=== PATIENT | female | born 1975 | race Caucasian/White ===

== ENCOUNTER 2018-02-01 14:24 | Inpatient (IN) | payer MEDICAID ==
[~2018-02-01] VITALS: Ht 167.6 cm; Wt 75.0 kg
--- NOTE | ~2018-02-01 | MORECARE ---
CASE MANAGEMENT DISCHARGE SUMMARY PATIENT: TIESHA CHAUDHARY UNIT: [id number] ADM DATE: 02/01/18 AGE: 42 : [birth year] SEX: F ROOM/BED: D.E10 AUTHOR: DEVYN COTTON PHYSICIAN: REFERRING PHYSICIAN: LIZA JEFFERSON MD DATE OF SERVICE: 02/01/18 Discharge Plan Patient Name: TIESHA CHAUDHARY Facility: [facility]:[place] : 1975 Planned Disposition: Home Anticipated Discharge Date: 02/03/18 Discharge Date: Expected LOS: 2 Initial Reviewer: [email or web address] Initial Review Date: 02/01/2018 Generated: 02/01/18 7:42 pm Patient Name: TIESHA CHAUDHARY Page [id number] at 1842 All edits/amendments must be made on the electronic document DICTATION DATE: 02/01/181841 NURSE EMERGENCY ROOM: MARNI 02/01/181841 RPT#: [id number] DC DATE: STATUS: ADM IN [facility] [address] [place] [address] END OF REPORT
--- NOTE | ~2018-02-01 | MORECARE ---
CASE MANAGEMENT DISCHARGE SUMMARY PATIENT: TIESHA CHAUDHARY UNIT: [id number] ADM DATE: 02/01/18 AGE: 42 : [birth year] SEX: F ROOM/BED: D.1204 AUTHOR: DEVYN COTTON PHYSICIAN: REFERRING PHYSICIAN: LIZA JEFFERSON MD DATE OF SERVICE: 02/03/18 Discharge Plan Patient Name: TIESHA CHAUDHARY Facility: [facility]:[place] : 1975 Planned Disposition: Home Anticipated Discharge Date: 02/03/18 Discharge Date: 02/02/2018 Expected LOS: 2 Initial Reviewer: [email or web address] Initial Review Date: 02/01/2018 Generated: 02/03/18 11:10 am DCP- Discharge Planning Updated by [email or web address]: Dominique Servin on 02/01/18 5:[address] Patient Name: TIESHA CHAUDHARY Admission Status: ER Accout number: [id number] Admission Date: 02-01-2018 : 1975 Admission Diagnosis: Attending: LIZA JEFFERSON Current LOS: 1 Anticipated DC Date: 02-03-2018 Planned Disposition: Home Primary Insurance: MEDICAID [place] Discharge Planning Comments: CM met with patient to complete initial dc planning assessment. CM educated patient on the CM role and verbal consent given by patient to complete assessment. Patient reports she is currently staying at [facility] for drug rehab. She reports she has been there for one month but has been clean for two months. At discharge patient plans to return to [facility] and feels this is a safe discharge. Patient denied known discharge needs at this time. She stated that [facility] will transport her back to their facility at time of discharge. CM will continue to follow and will assist as needed with dc plans/needs. See below for more assessment information. Horse Stud Worker: Dominique Servin RN, [facility] DCPIA - Discharge Planning Initial Assessment Updated by [email or web address]: Dominique Servin on 02/01/18 6:43 pm * Is the patient Alert and Oriented? Yes * How many steps to enter\exit or inside your home? None * PCP Doesn't have a PCP * Pharmacy [facility] [address] * Preadmission Environment Other * Other Environment [facility] for drug rehab. * Facility Name [facility] * ADLs Independent * Equipment None * List name and contact numbers for known caregivers / representatives who currently or will assist patient after discharge: Any worker at [facility] - [phone] * Verbal permission to speak to the caregivers and representatives has been obtained from the patient. Yes * Community resources currently utilized Other * Please name any agencies selected above. [facility] - Drug rehab. * Additional services required to return to the preadmission environment? No * Can the patient safely return to the preadmission environment? Yes * Has this patient been hospitalized within the prior 30 days at any hospital? No Last DP export: 02/01/18 5:50 Patient Name: TIESHA CHAUDHARY Page 68825 at 1010 All edits/amendments must be made on the electronic document DICTATION DATE: 02/03/18 1010 BUFFING WHEEL RAKER: MARNI 02/03/18 1010 RPT#: [id number] DC DATE:02/02/18 STATUS: DIS IN [facility] [address] [place] [address] END OF REPORT
--- NOTE | ~2018-02-01 | MORECARE ---
CASE MANAGEMENT DISCHARGE SUMMARY PATIENT: TIESHA CHAUDHARY UNIT: [id number] ADM DATE: 02/01/18 AGE: 42 : 77 SEX: F ROOM/BED: D.E10 AUTHOR: LULADOC PHYSICIAN: REFERRING PHYSICIAN: LIZA JEFFERSON MD DATE OF SERVICE: 02/01/18 Discharge Plan Patient Name: TIESHA CHAUDHARY Facility: [facility]:[place] : 1975 Planned Disposition: Home Anticipated Discharge Date: 02/03/18 Discharge Date: Expected LOS: 2 Initial Reviewer: [email or web address] Initial Review Date: 02/01/2018 Generated: 02/01/18 7:50 pm DCP- Discharge Planning Updated by [email or web address]: Dominique Servin on 02/01/18 5:[address] Patient Name: TIESHA CHAUDHARY Admission Status: ER Accout number: [id number] Admission Date: 02-01-2018 : 1975 Admission Diagnosis: Attending: LIZA JEFFERSON Current LOS: 1 Anticipated DC Date: 02-03-2018 Planned Disposition: Home Primary Insurance: MEDICAID [place] Discharge Planning Comments: CM met with patient to complete initial dc planning assessment. CM educated patient on the CM role and verbal consent given by patient to complete assessment. Patient reports she is currently staying at [facility] for drug rehab. She reports she has been there for one month but has been clean for two months. At discharge patient plans to return to [facility] and feels this is a safe discharge. Patient denied known discharge needs at this time. She stated that [facility] will transport her back to their facility at time of discharge. CM will continue to follow and will assist as needed with dc plans/needs. See below for more assessment information. Napper Grinder: Dominique Servin RN, [facility] DCPIA - Discharge Planning Initial Assessment Updated by [email or web address]: Dominique Servin on 02/01/18 6:43 pm * Is the patient Alert and Oriented? Yes * How many steps to enter\exit or inside your home? None * PCP Doesn't have a PCP * Pharmacy [facility] [address] * Preadmission Environment Other * Other Environment [facility] for drug rehab. * Facility Name [facility] * ADLs Independent * Equipment None * List name and contact numbers for known caregivers / representatives who currently or will assist patient after discharge: Any worker at [facility] - [phone] * Verbal permission to speak to the caregivers and representatives has been obtained from the patient. Yes * Community resources currently utilized Other * Please name any agencies selected above. [facility] - Drug rehab. * Additional services required to return to the preadmission environment? No * Can the patient safely return to the preadmission environment? Yes * Has this patient been hospitalized within the prior 30 days at any hospital? No Last DP export: 02/01/18 5:42 Patient Name: TIESHA CHAUDHARY Page 06300 at 1851 All edits/amendments must be made on the electronic document DICTATION DATE: 02/01/181849 WINDING INSPECTOR: MARNI 02/01/181849 RPT#: [id number] UT DATE: STATUS: ADM IN [facility] [address] [place] [address] END OF REPORT
[2018-02-01 14:48] VITALS: BP 120/66
[2018-02-01 14:58] LABS: BASOPHILS 0.7 % (0-2); EOSINOPHILS 2.1 % (0-7); HEMOGLOBIN 9.6 g/dL (12-16); IMMATURE GRANULOCYTES 0.2 % (0-5); MCH 22.7 pg (26.0-34.0); MCV 73.3 fL (80.0-100.0); MEAN PLATELET VOLUME 9.6 fL (7.4-10.4); MONOCYTES 6.2 % (2-11); NEUTROPHILS 68.8 % (40-80); PLATELET COUNT 392 10x3/uL (130-400); RBC 4.23 10x6/uL (4.00-5.40); RDW 16.6 % (11.5-14.5); WBC 12.4 10x3/uL (4.8-10.8)
[2018-02-01 15:00] VITALS: BP 120/69
[2018-02-01 15:09] LABS: APPEARANCE CLEAR (CLEAR); BILIRUBIN NEGATIVE (NEGATIVE); COLOR YELLOW (YELLOW); GLUCOSE NEGATIVE (NEGATIVE); KETONE NEGATIVE (NEGATIVE); NITRITE POSITIVE (NEGATIVE); PROTEIN NEGATIVE (NEGATIVE); SPECIFIC GRAVITY 1.015 (1.005-1.020); UROBILINOGEN NORMAL (NORMAL)
[2018-02-01 15:11] LABS: BACTERIA MANY /hpf (NONE SEEN); EPITHELIAL CELLS 0-5 /hpf (0-5); RED CELLS - URINE OCC /hpf (0-5); WHITE CELLS - URINE 0-5 /hpf (0-5)
[2018-02-01 15:30] VITALS: BP 123/72
[2018-02-01 15:31] LABS: ALBUMIN 3.6 g/dL (3.4-5.0); ALKALINE PHOSPHATASE 82 U/L (46-116); ALT (SGPT) 19 U/L (10-68); BILIRUBIN - TOTAL 0.15 mg/dL (0.2-1.3); CALC OSMOLALITY 272 mosm/kg (275-300); CARBON DIOXIDE 25.3 mmol/L (21.0-32.0); CHLORIDE - SERUM 102 mmol/L (98-107); CREATININE - SERUM 0.7 mg/dL (0.6-1.3); GLUCOSE 87 mg/dL (74-106); POTASSIUM - SERUM 3.7 mmol/L (3.5-5.1); PROTEIN - SERUM 7.7 g/dL (6.4-8.2); SODIUM 137 mmol/L (136-145); UREA NITROGEN 13 mg/dL (7-18); eGFR NON AFRICAN AMERICAN > 90 mL/min (90-120)
[2018-02-01 15:37] LABS: AMYLASE - SERUM 30 U/L (25-115); LIPASE 136 U/L (73-393)
[2018-02-01 15:41] LABS: TROPONIN-I < 0.017 ng/mL (0.000-0.060)
[2018-02-01 16:00] VITALS: BP 132/72
[2018-02-01 17:30] VITALS: BP 127/77
[2018-02-01 18:30] VITALS: BP 136/50
[2018-02-02] VITALS: BP 116/68
[2018-02-02 04:00] VITALS: BP 104/63
[2018-02-02 05:34] LABS: BASOPHILS 0.7 % (0-2); EOSINOPHILS 3.2 % (0-7); HEMATOCRIT 27.7 % (36.0-48.0); HEMOGLOBIN 8.3 g/dL (12-16); IMMATURE GRANULOCYTES 0.1 % (0-5); LYMPHOCYTES 32.2 % (15-50); MCH 22.1 pg (26.0-34.0); MCV 73.9 fL (80.0-100.0); MEAN PLATELET VOLUME 9.8 fL (7.4-10.4); MONOCYTES 10.4 % (2-11); NEUTROPHILS 53.4 % (40-80); PLATELET COUNT 338 10x3/uL (130-400); RBC 3.75 10x6/uL (4.00-5.40); RDW 16.5 % (11.5-14.5)
[2018-02-02 05:41] VITALS: BP 126/83; Ht 167.6 cm; Wt 75.0 kg
[2018-02-02 05:41] LABS: WBC 8.6 10x3/uL (4.8-10.8)
[2018-02-02 05:51] LABS: ALKALINE PHOSPHATASE 65 U/L (46-116); ALT (SGPT) 19 U/L (10-68); BILIRUBIN - TOTAL 0.23 mg/dL (0.2-1.3); CALC OSMOLALITY 276 mosm/kg (275-300); CALCIUM 8.1 mg/dL (8.5-10.1); CARBON DIOXIDE 23.8 mmol/L (21.0-32.0); CHLORIDE - SERUM 107 mmol/L (98-107); CREATININE - SERUM 0.7 mg/dL (0.6-1.3); GLUCOSE 84 mg/dL (74-106); PROTEIN - SERUM 6.4 g/dL (6.4-8.2); SODIUM 140 mmol/L (136-145); UREA NITROGEN 11 mg/dL (7-18); eGFR NON AFRICAN AMERICAN > 90 mL/min (90-120)
[2018-02-02 08:13] VITALS: BP 126/78
[2018-02-02] MEDS ORDERED: LEVAQUIN750 MG PO (12:00)
[2018-02-02] MEDS ORDERED: ZOFRAN4 MG PO (12:00)
[2018-02-02 12:16] VITALS: BP 124/79
== END 2018-02-02 15:10 | disposition home or self-care (01) | DRG 690 ==
LOC: D.ER 14:24 → D.M3 18:28 → D.EDHOLD 18:28 → D.M3 19:49
PROVIDERS: Family Medicine
DX: N10 Acute pyelonephritis (principal); Z72.0 Tobacco use